=== PATIENT | male | born 1960 | race Caucasian/White ===

== ENCOUNTER 2020-12-21 14:45 | Outpatient (CLI) | payer OTHER ==
[~2020-12-21 14:45] MED LIST: DICL100G30 TOP; GABA800T11 PO; LISI20TA28 PO; SILD20TA2 PO; TEST5GEL19 TOP
[2020-12-21 17:31] LABS: BASOPHILS % (AUTO) 0.7 % (0-1); EOSINOPHILS # (AUTO) 0.7 X10'3 (0-0.9); EOSINOPHILS % (AUTO) 12.4 % (0-6); HEMATOCRIT 35.5 % (42.0-52.0); HEMOGLOBIN 11.1 g/dl (14.0-17.9); LYMPHOCYTES # (AUTO) 1.1 X10'3 (1.1-4.8); LYMPHOCYTES % (AUTO) 18.9 % (21-51); MEAN CORPUSCULAR HEMOGLOBIN 23.2 PG (27.0-31.0); MEAN CORPUSCULAR HGB CONC 31.2 g/dL (33.0-36.5); MEAN CORPUSCULAR VOLUME 74.2 FL (78-98); MEAN PLATELET VOLUME 8.9 FL (7.4-10.4); MONOCYTES # (AUTO) 0.6 X10'3 (0-0.9); MONOCYTES % (AUTO) 10.8 % (2-12); NEUTROPHILS # (AUTO) 3.4 X10'3 (1.8-7.7); NEUTROPHILS % (AUTO) 57.2 % (42-75); PLATELET COUNT 356 X10'3 (140-440); RED BLOOD COUNT 4.78 X10'6 (4.70-6.10)
[2020-12-21 17:50] LABS: ALBUMIN 3.3 G/DL (3.4-5.0); ANION GAP 16 (8-16); BLOOD UREA NITROGEN 32 MG/DL (7-18); BUN/CREATININE RATIO 26.9 (5.4-32.0); CALCIUM 9.8 MG/DL (8.5-10.1); CHLORIDE 101 MMOL/L (99-107); CREATININE 1.19 MG/DL (0.60-1.10); GLUCOSE 130 MG/DL (70-104); POTASSIUM 3.9 MMOL/L (3.5-5.1); SODIUM 140 MMOL/L (135-145); TOTAL CARBON DIOXIDE 23.2 MMOL/L (24-32); VANCOMYCIN,RANDOM 22.3 UG/ML; eGFR 62 ML/MIN
[2020-12-21 17:54] LABS: ANISOCYTOSIS 2+; MICROCYTOSIS 1+; PLATELET ESTIMATE NORMAL
[2020-12-21 17:55] LABS: HYPOCHROMASIA 1+; STOMATOCYTES 1+
== END 2020-12-21 23:59 | disposition home or self-care (01) ==
LOC: LAB 14:45
PROVIDERS: ATTEND Internal Medicine Infectious Disease
DX: M01.X0 Direct infection of unspecified joint in infectious and parasitic diseases classified elsewhere (principal)
CPT/HCPCS: 36415; 80048; 80202; 85008; 85025; 85651; 86140

== ENCOUNTER 2021-03-12 19:24 | Outpatient (CLI) | payer BC ==
[2021-03-12 20:06] LABS: HEMOGLOBIN 11.5 g/dl (14.0-17.9); MEAN CORPUSCULAR HEMOGLOBIN 26.2 PG (27.0-31.0); MEAN CORPUSCULAR HGB CONC 32.1 g/dL (33.0-36.5)
[2021-03-12 20:07] LABS: BASOPHILS # (AUTO) 0.1 X10'3 (0-0.2); BASOPHILS % (AUTO) 0.8 % (0-1); EOSINOPHILS # (AUTO) 0.6 X10'3 (0-0.9); HEMATOCRIT 35.8 % (42.0-52.0); LYMPHOCYTES # (AUTO) 1.6 X10'3 (1.1-4.8); LYMPHOCYTES % (AUTO) 15.9 % (21-51); MEAN CORPUSCULAR VOLUME 81.5 FL (78-98); MEAN PLATELET VOLUME 8.9 FL (7.4-10.4); MONOCYTES # (AUTO) 0.8 X10'3 (0-0.9); MONOCYTES % (AUTO) 8.5 % (2-12); NEUTROPHILS # (AUTO) 6.9 X10'3 (1.8-7.7); NEUTROPHILS % (AUTO) 68.8 % (42-75); PLATELET COUNT 581 X10'3 (140-440); RED CELL DISTRIBUTION WIDTH 19.6 % (11.5-14.5)
[2021-03-12 20:20] LABS: ALBUMIN 3.6 G/DL (3.4-5.0); ANION GAP 19 (8-16); BLOOD UREA NITROGEN 29 MG/DL (7-18); BUN/CREATININE RATIO 17.3 (5.4-32.0); C-REACTIVE PROTEIN 5.88 MG/DL (0.0-0.5); CALCIUM 10.1 MG/DL (8.5-10.1); CHLORIDE 100 MMOL/L (99-107); CREATININE 1.68 MG/DL (0.60-1.10); GLUCOSE 124 MG/DL (70-104); POTASSIUM 4.5 MMOL/L (3.5-5.1); SODIUM 141 MMOL/L (135-145); TOTAL CARBON DIOXIDE 22.3 MMOL/L (24-32); eGFR 42 ML/MIN
[2021-03-12 21:02] LABS: CREATINE KINASE 11481 U/L (39-308)
== END 2021-03-12 23:59 | disposition home or self-care (01) ==
LOC: LAB SPEC 19:24
PROVIDERS: ATTEND Internal Medicine Infectious Disease
DX: M01.X0 Direct infection of unspecified joint in infectious and parasitic diseases classified elsewhere (principal)
CPT/HCPCS: 80048; 82550; 85025; 85651; 86140

== ENCOUNTER → 2021-03-19 | Outpatient (CLI) | payer BC ==
[2021-03-19 20:01] LABS: BASOPHILS # (AUTO) 0.1 X10'3 (0-0.2); BASOPHILS % (AUTO) 0.6 % (0-1); EOSINOPHILS # (AUTO) 0.8 X10'3 (0-0.9); EOSINOPHILS % (AUTO) 8.4 % (0-6); HEMATOCRIT 39.2 % (42.0-52.0); HEMOGLOBIN 12.5 g/dl (14.0-17.9); LYMPHOCYTES # (AUTO) 1.6 X10'3 (1.1-4.8); MEAN CORPUSCULAR HEMOGLOBIN 25.6 PG (27.0-31.0); MEAN CORPUSCULAR HGB CONC 31.8 g/dL (33.0-36.5); MEAN CORPUSCULAR VOLUME 80.5 FL (78-98); MEAN PLATELET VOLUME 9.2 FL (7.4-10.4); MONOCYTES # (AUTO) 0.7 X10'3 (0-0.9); MONOCYTES % (AUTO) 7.4 % (2-12); NEUTROPHILS # (AUTO) 6.1 X10'3 (1.8-7.7); NEUTROPHILS % (AUTO) 66.6 % (42-75); PLATELET COUNT 509 X10'3 (140-440); RED BLOOD COUNT 4.87 X10'6 (4.70-6.10); RED CELL DISTRIBUTION WIDTH 19.3 % (11.5-14.5); WHITE BLOOD COUNT 9.1 X10'3 (4.5-11.0)
[2021-03-19 20:17] LABS: ALBUMIN 3.8 G/DL (3.4-5.0); ANION GAP 18 (8-16); BLOOD UREA NITROGEN 25 MG/DL (7-18); BUN/CREATININE RATIO 21.2 (5.4-32.0); C-REACTIVE PROTEIN 1.29 MG/DL (0.0-0.5); CALCIUM 10.1 MG/DL (8.5-10.1); CHLORIDE 98 MMOL/L (99-107); CREATININE 1.18 MG/DL (0.60-1.10); GLUCOSE 127 MG/DL (70-104); POTASSIUM 4.5 MMOL/L (3.5-5.1); SODIUM 138 MMOL/L (135-145); eGFR 63 ML/MIN
[2021-03-19 20:19] LABS: CREATINE KINASE 3801 U/L (39-308)
[2021-03-19 21:55] LABS: PLATELET ESTIMATE INCREASED
[2021-03-19 21:56] LABS: ANISOCYTOSIS 2+
== END | disposition home or self-care (01) ==
LOC: LAB SPEC 19:16
PROVIDERS: ATTEND Internal Medicine Infectious Disease
DX: M01.X0 Direct infection of unspecified joint in infectious and parasitic diseases classified elsewhere (principal)
CPT/HCPCS: 36415; 80048; 82550; 85008; 85025; 85651; 86140

== ENCOUNTER 2021-03-26 18:03 | Outpatient (CLI) | payer BC ==
[2021-03-26 19:58] LABS: BASOPHILS # (AUTO) 0.1 X10'3 (0-0.2); BASOPHILS % (AUTO) 0.8 % (0-1); EOSINOPHILS # (AUTO) 0.5 X10'3 (0-0.9); EOSINOPHILS % (AUTO) 5.1 % (0-6); HEMATOCRIT 40.3 % (42.0-52.0); HEMOGLOBIN 12.9 g/dl (14.0-17.9); LYMPHOCYTES % (AUTO) 20.8 % (21-51); MEAN CORPUSCULAR HEMOGLOBIN 25.8 PG (27.0-31.0); MEAN CORPUSCULAR HGB CONC 32.1 g/dL (33.0-36.5); MEAN CORPUSCULAR VOLUME 80.5 FL (78-98); MEAN PLATELET VOLUME 9.6 FL (7.4-10.4); MONOCYTES # (AUTO) 0.7 X10'3 (0-0.9); MONOCYTES % (AUTO) 7.8 % (2-12); NEUTROPHILS # (AUTO) 6.3 X10'3 (1.8-7.7); NEUTROPHILS % (AUTO) 65.5 % (42-75); PLATELET COUNT 401 X10'3 (140-440); RED CELL DISTRIBUTION WIDTH 18.4 % (11.5-14.5); WHITE BLOOD COUNT 9.5 X10'3 (4.5-11.0)
[2021-03-26 20:14] LABS: ALBUMIN 3.8 G/DL (3.4-5.0); ANION GAP 18 (8-16); BLOOD UREA NITROGEN 24 MG/DL (7-18); BUN/CREATININE RATIO 17.4 (5.4-32.0); C-REACTIVE PROTEIN 1.06 MG/DL (0.0-0.5); CALCIUM 9.6 MG/DL (8.5-10.1); CHLORIDE 98 MMOL/L (99-107); CREATINE KINASE 376 U/L (39-308); CREATININE 1.38 MG/DL (0.60-1.10); GLUCOSE 127 MG/DL (70-104); POTASSIUM 4.4 MMOL/L (3.5-5.1); SODIUM 139 MMOL/L (135-145); eGFR 52 ML/MIN
== END 2021-03-26 23:59 | disposition home or self-care (01) ==
LOC: LAB SPEC 18:03
PROVIDERS: ATTEND Orthopaedic Surgery
DX: M01.X0 Direct infection of unspecified joint in infectious and parasitic diseases classified elsewhere (principal)
CPT/HCPCS: 36415; 80048; 82550; 85025; 85651; 86140

== ENCOUNTER → 2021-04-02 | Outpatient (CLI) | payer BC ==
[2021-04-02 17:56] LABS: BASOPHILS # (AUTO) 0.1 X10'3 (0-0.2); BASOPHILS % (AUTO) 0.8 % (0-1); EOSINOPHILS # (AUTO) 0.4 X10'3 (0-0.9); EOSINOPHILS % (AUTO) 5.1 % (0-6); HEMATOCRIT 40.6 % (42.0-52.0); HEMOGLOBIN 12.9 g/dl (14.0-17.9); LYMPHOCYTES # (AUTO) 1.8 X10'3 (1.1-4.8); LYMPHOCYTES % (AUTO) 20.2 % (21-51); MEAN CORPUSCULAR HEMOGLOBIN 25.4 PG (27.0-31.0); MEAN CORPUSCULAR HGB CONC 31.7 g/dL (33.0-36.5); MEAN CORPUSCULAR VOLUME 80.1 FL (78-98); MEAN PLATELET VOLUME 9.4 FL (7.4-10.4); MONOCYTES # (AUTO) 0.8 X10'3 (0-0.9); MONOCYTES % (AUTO) 9.4 % (2-12); NEUTROPHILS # (AUTO) 5.6 X10'3 (1.8-7.7); NEUTROPHILS % (AUTO) 64.5 % (42-75); PLATELET COUNT 382 X10'3 (140-440); RED BLOOD COUNT 5.07 X10'6 (4.70-6.10); WHITE BLOOD COUNT 8.7 X10'3 (4.5-11.0)
[2021-04-02 18:12] LABS: ALBUMIN 3.8 G/DL (3.4-5.0); ANION GAP 22 (8-16); BLOOD UREA NITROGEN 27 MG/DL (7-18); BUN/CREATININE RATIO 18.9 (5.4-32.0); CALCIUM 9.3 MG/DL (8.5-10.1); CHLORIDE 98 MMOL/L (99-107); CREATINE KINASE 203 U/L (39-308); CREATININE 1.43 MG/DL (0.60-1.10); GLUCOSE 122 MG/DL (70-104); POTASSIUM 3.8 MMOL/L (3.5-5.1); SODIUM 141 MMOL/L (135-145); TOTAL CARBON DIOXIDE 20.8 MMOL/L (24-32); eGFR 50 ML/MIN
== END | disposition home or self-care (01) ==
LOC: LAB SPEC 17:37
PROVIDERS: ATTEND Internal Medicine Infectious Disease
DX: M01.X0 Direct infection of unspecified joint in infectious and parasitic diseases classified elsewhere (principal)
CPT/HCPCS: 80048; 82550; 85025; 85651; 86140

== ENCOUNTER 2023-11-11 15:44 | Emergency (ER) | payer BC ==
[~2023-11-11] VITALS: Ht 185.4 cm; Wt 118.0 kg
[~2023-11-11 15:44] MED LIST changes: -DICL100G30 TOP; +DICL100G59 TOP
[2023-11-11 15:46] VITALS: TEMP 98
[2023-11-11 16:36] LABS: BASOPHILS % (AUTO) 0.5 % (0-1); EOSINOPHILS # (AUTO) 0.4 X10'3 (0-0.9); EOSINOPHILS % (AUTO) 5.5 % (0-6); HEMATOCRIT 40.2 % (42.0-52.0); HEMOGLOBIN 13.3 g/dl (14.0-17.9); LYMPHOCYTES # (AUTO) 1.4 X10'3 (1.1-4.8); LYMPHOCYTES % (AUTO) 21.7 % (21-51); MEAN CORPUSCULAR HEMOGLOBIN 27.4 PG (27.0-31.0); MEAN PLATELET VOLUME 8.6 FL (7.4-10.4); MONOCYTES # (AUTO) 0.6 X10'3 (0-0.9); MONOCYTES % (AUTO) 9.4 % (2-12); NEUTROPHILS # (AUTO) 4.1 X10'3 (1.8-7.7); NEUTROPHILS % (AUTO) 62.9 % (42-75); PLATELET COUNT 306 X10'3 (140-440); RED BLOOD COUNT 4.84 X10'6 (4.70-6.10); RED CELL DISTRIBUTION WIDTH 17.9 % (11.5-14.5); WHITE BLOOD COUNT 6.5 X10'3 (4.5-11.0)
[2023-11-11 16:39] LABS: ALANINE AMINOTRANSFERASE 60 U/L (12-78); ALBUMIN 2.9 G/DL (3.4-5.0); ALBUMIN/GLOBULIN RATIO 0.7 (1.1-1.5); ALKALINE PHOSPHATASE 95 IU/L (46-116); ANION GAP 14 (8-16); ASPARTATE AMINO TRANSFERASE 122 U/L (10-37); BILIRUBIN,TOTAL 0.3 MG/DL (0.1-1.0); BLOOD UREA NITROGEN 18 MG/DL (7-18); BUN/CREATININE RATIO 10.6 (10.0-20.0); CALCIUM 7.8 MG/DL (8.5-10.1); CHLORIDE 100 MMOL/L (99-107); GLUCOSE 153 MG/DL (70-104); POTASSIUM 3.1 MMOL/L (3.5-5.1); SODIUM 138 MMOL/L (135-145); TOTAL CARBON DIOXIDE 24.3 MMOL/L (24-32); eCRCL 50 ML/MIN; eGFR 41 ML/MIN
[2023-11-11 16:43] LABS: APTT 27 SECONDS (22-32); PROTHROMBIN TIME 10.6 SECONDS (9.0-12.0)
[2023-11-11 17:26] VITALS: O2SAT 95
[2023-11-11] MEDS: LIDOcaine 1% W/epiNEPHrine 1:100,000 20ml vial IJ ONE (18:20)
[2023-11-11 18:38] LABS: ETHANOL 199 MG/DL (<10)
[2023-11-11 19:40] VITALS: BP 121/74; PULSE 100; RESP 20
[2023-11-11] MEDS ORDERED: CEPH-585 PO (20:38)
== END 2023-11-11 21:30 | disposition home or self-care (01) ==
LOC: ER 15:45
DX: S01.81XA Laceration without foreign body of other part of head, initial encounter (principal); I10 Essential (primary) hypertension; R79.1 Abnormal coagulation profile; Z79.2 Long term (current) use of antibiotics; Z79.899 Other long term (current) drug therapy; W19.XXXA Unspecified fall, initial encounter; Y93.89 Activity, other specified; Y92.89 Other specified places as the place of occurrence of the external cause; Y99.8 Other external cause status
CPT/HCPCS: 12015; 36415; 70450; 72125; 80053; 80320; 85025; 85610; 85730; 99284